=== PATIENT | male | born 1990 | race Caucasian/White ===

== ENCOUNTER 2022-05-15 20:22 | Emergency (ER) | payer MEDICAID ==
[~2022-05-15] VITALS: Ht 182.9 cm; Wt 85.1 kg
[~2022-05-15 20:22] MED LIST: CLIN-97 PO; DIVA-76 PO; HYDR50CA PO; LURA80TA2
[2022-05-15 21:11] VITALS: BP 141/81
== END 2022-05-16 01:38 | disposition home or self-care (01) ==
LOC: ER 20:24
DX: F41.9 Anxiety disorder, unspecified (principal); Z59.00 Homelessness unspecified
CPT/HCPCS: 99283

== ENCOUNTER 2022-05-16 03:41 | Emergency (ER) | payer MEDICAID ==
[~2022-05-16] VITALS: Ht 182.9 cm; Wt 86.1 kg
[2022-05-16 05:49] LABS: URINE AMPHETAMINE SCREEN NEGATIVE (Neg); URINE BARBITUATE SCREEN NEGATIVE (Neg); URINE BENZODIAZEPINES SCREEN NEGATIVE (Neg); URINE CANNABINOID SCREEN POSITIVE (Neg); URINE COCAINE SCREEN NEGATIVE (Neg); URINE METHADONE SCREEN NEGATIVE (Neg); URINE OPIATE SCREEN NEGATIVE (Neg); URINE PHENCYCLIDINE SCREEN NEGATIVE (Neg)
[2022-05-16 06:42] LABS: EOSINOPHILS # (AUTO) 0.3 X10'3 (0-0.9); HEMOGLOBIN 14.9 g/dl (14.0-17.9); LYMPHOCYTES # (AUTO) 1.6 X10'3 (1.1-4.8); MONOCYTES # (AUTO) 0.5 X10'3 (0-0.9)
[2022-05-16 06:43] LABS: BASOPHILS % (AUTO) 0.9 % (0-1); EOSINOPHILS % (AUTO) 6.3 % (0-6); HEMATOCRIT 42.6 % (42.0-52.0); LYMPHOCYTES % (AUTO) 37.3 % (21-51); MEAN CORPUSCULAR HEMOGLOBIN 31.6 PG (27.0-31.0); MEAN CORPUSCULAR VOLUME 90.3 FL (78-98); MEAN PLATELET VOLUME 9.9 FL (7.4-10.4); MONOCYTES % (AUTO) 11.8 % (2-12); NEUTROPHILS # (AUTO) 1.9 X10'3 (1.8-7.7); NEUTROPHILS % (AUTO) 43.7 % (42-75); PLATELET COUNT 241 X10'3 (140-440); RED BLOOD COUNT 4.71 X10'6 (4.70-6.10); RED CELL DISTRIBUTION WIDTH 13.5 % (11.5-14.5); WHITE BLOOD COUNT 4.4 X10'3 (4.5-11.0)
[2022-05-16 07:11] LABS: ALANINE AMINOTRANSFERASE 13 U/L (12-78); ALBUMIN 3.5 G/DL (3.4-5.0); ALBUMIN/GLOBULIN RATIO 1.1 (1.1-1.5); ALKALINE PHOSPHATASE 51 IU/L (46-116); ANION GAP 10 (8-16); ASPARTATE AMINO TRANSFERASE 19 U/L (10-37); BILIRUBIN,TOTAL 1.3 MG/DL (0.1-1.0); BLOOD UREA NITROGEN 9 MG/DL (7-18); BUN/CREATININE RATIO 15.3 (5.4-32.0); CALCIUM 8.8 MG/DL (8.5-10.1); CHLORIDE 105 MMOL/L (99-107); CREATININE 0.59 MG/DL (0.60-1.10); GLUCOSE 84 MG/DL (70-104); SODIUM 140 MMOL/L (135-145); TOTAL CARBON DIOXIDE 24.7 MMOL/L (24-32); TOTAL PROTEIN 6.8 G/DL (6.4-8.2); eGFR > 90 ML/MIN
[2022-05-16 07:14] LABS: LARGE PLATELETS FEW; PLATELET ESTIMATE NORMAL
[2022-05-16 07:22] LABS: VALPROATE < 3.0 UG/ML (50-100)
[2022-05-16 07:25] LABS: ACETAMINOPHEN < 2.0 UG/ML (10-30); ETHANOL < 0.010 GM/DL (0.0-0.010)
[2022-05-16 08:44] VITALS: BP 120/50
[2022-05-16] MEDS ORDERED: POTASSIUM BICARB 20meq eff tab 20 MEQ TABLET.EFF PO ONE (09:05)
--- NOTE | 2022-05-16 09:08 | NUR ---
William sent pt packet to [facility], awaiting pt UA.
[2022-05-16 09:19] LABS: CLARITY,URINE CLEAR (Clear); COLOR,URINE YELLOW (Yellow); GLUCOSE, URINE NEGATIVE (Neg); KETONES,URINE TRACE mg/dl (Neg); LEUKOCYTE ESTERASE ,URINE NEGATIVE (Neg); OCCULT BLOOD,URINE NEGATIVE (Neg); PROTEIN,URINE NEGATIVE (Neg); UROBILINOGEN,URINE 0.2 E.U/dL (0.2-1.0)
[2022-05-16 09:26] LABS: NITRITES, URINE NEGATIVE (Neg); UA COLLECTION TYPE VOIDED
--- NOTE | 2022-05-16 12:35 | NUR ---
Upon assessments, pt is comfortable without complaints. Provided with a safe tray for lunch. Room safety check done.
--- NOTE | 2022-05-16 12:35 | NUR ---
Inspection of backpack performed. Marijuana found and disposed of per protocol with security present. Pt notified and is understanding of hospital policy.
--- NOTE | 2022-05-16 13:26 | NUR ---
spoke with micaela from [employer]ion control ,answered all the question related to lab workup ,informed that 4 hr ekg was not repeated ,but pt is not drowsy ,AOX 4 .vitals stable ,sinus bradycardiac on monitor.as per micaela she will call the show card writer back to see if they need any more test .
== END 2022-05-16 13:52 | disposition still patient (30) ==
LOC: ER 03:41
DX: T46.5X2A Poisoning by other antihypertensive drugs, intentional self-harm, initial encounter (principal); Z20.822 Contact with and (suspected) exposure to COVID-19; F41.9 Anxiety disorder, unspecified; F32.A Depression, unspecified; F20.9 Schizophrenia, unspecified; Z59.00 Homelessness unspecified; Z79.2 Long term (current) use of antibiotics; Z79.899 Other long term (current) drug therapy; Y92.89 Other specified places as the place of occurrence of the external cause
CPT/HCPCS: 36415; 80053; 80164; 80305; 80320; 80329; 81003; 85008; 85025; 87811; 93005; 99284

== ENCOUNTER 2022-07-21 20:59 | Emergency (ER) | payer MEDICAID ==
[~2022-07-21] VITALS: Ht 182.9 cm; Wt 100.0 kg
[2022-07-22 01:35] VITALS: BP 145/78
== END 2022-07-22 01:37 | disposition home or self-care (01) ==
LOC: ER 20:59
DX: S52.122A Displaced fracture of head of left radius, initial encounter for closed fracture (principal); F41.9 Anxiety disorder, unspecified; Z59.00 Homelessness unspecified; Z79.2 Long term (current) use of antibiotics; Z79.899 Other long term (current) drug therapy; V19.9XXA Pedal cyclist (driver) (passenger) injured in unspecified traffic accident, initial encounter; Y93.89 Activity, other specified; Y92.89 Other specified places as the place of occurrence of the external cause; Y99.8 Other external cause status
CPT/HCPCS: 29105; 73080; 73110; 99284; A4565; A6449

== ENCOUNTER 2023-06-26 09:47 | Emergency (ER) | payer MEDICAID ==
[~2023-06-26] VITALS: Ht 182.9 cm; Wt 81.6 kg
[2023-06-26 09:57] VITALS: BP 153/78; PULSE 104; RESP 16; TEMP 98.7; O2SAT 99
== END 2023-06-26 10:59 | disposition home or self-care (01) ==
LOC: ER 09:48
DX: Z11.52 Encounter for screening for COVID-19 (principal); Z20.822 Contact with and (suspected) exposure to COVID-19; F41.9 Anxiety disorder, unspecified; F32.A Depression, unspecified; Z59.00 Homelessness unspecified; Z79.2 Long term (current) use of antibiotics; Z79.899 Other long term (current) drug therapy
CPT/HCPCS: 36415; 87811; 99283

== ENCOUNTER 2024-03-06 15:16 | Emergency (ER) | payer MEDICAID ==
[~2024-03-06] VITALS: Ht 182.9 cm; Wt 84.8 kg
[2024-03-06 16:17] VITALS: BP 130/74; PULSE 70; RESP 16; TEMP 98.5; O2SAT 98
== END 2024-03-06 16:20 | disposition home or self-care (01) ==
LOC: ER 15:17
DX: S62.346A Nondisplaced fracture of base of fifth metacarpal bone, right hand, initial encounter for closed fracture (principal); F41.9 Anxiety disorder, unspecified; F32.A Depression, unspecified; F20.9 Schizophrenia, unspecified; Z79.2 Long term (current) use of antibiotics; Z79.899 Other long term (current) drug therapy; X58.XXXA Exposure to other specified factors, initial encounter; Y93.89 Activity, other specified; Y92.89 Other specified places as the place of occurrence of the external cause; Y99.8 Other external cause status
CPT/HCPCS: 29125; 73130; 99283

== ENCOUNTER 2025-02-17 14:30 | Emergency (ER) | payer SELFPAY ==
[~2025-02-17] VITALS: Ht 182.9 cm; Wt 79.1 kg
[~2025-02-17 14:30] MED LIST changes: +CLIN-224 PO; -CLIN-97 PO; +DIVA-134 PO; -DIVA-76 PO
[2025-02-17 14:47] VITALS: BP 165/104; PULSE 102; RESP 16; TEMP 98.4; O2SAT 99
--- NOTE | 2025-02-17 14:50 | Physician Documentation ---
History of Present Illness ~ General Stated Complaint: ABD PAIN Time Seen by MD: 17:22 Primary Medical Doctor: no pmd History of Present Illness Initial Comments Presents to the ER with symptoms of illness since August of fatigue, headaches, nausea, and weakness. Worse recently. No fevers or chills, CP or dyspnea. "I just don't feel well." Medication Reconciliation Allergies: Coded Allergies: No Known Allergies (Unverified , 03/06/24) Scheduled Clindamycin HCL* (Clindamycin HCL*), 1 CAP PO Q6H Divalproex Sodium DR* (Depakote DR*), 1 TAB PO TID, (Reported) Hydroxyzine Pamoate (Vistaril), 1 CAP PO Q6H, (Reported) Lurasidone HCl (Latuda), HS, (Reported) Scheduled PRN ONDANSETRON ODT 4mg tablet (Ondansetron Odt), 1 TAB PO Q6H PRN PRN for nausea/vomiting Past Medical History Past Medical History: Anxiety, Depression, Schizophrenia Past Surgical History: no surgical history Alcohol Use: None Lives In: Homeless Review of Systems ROS As stated above in the HPI, otherwise all systems are reviewed and negative. Physical Exam Physical Exam Physical Exam General: Alert, no apparent distress. Neck: Full range of motion. Respiratory: Lungs clear, no respiratory distress. Chest: No accessory muscle use. Cardiovascular: Regular rate and rhythm, no murmurs. Gastrointestinal: Soft, nontender, nondistended. Bowels sounds present. Extremities: Normal range of motion, no deformity. Neurologic: Oriented x4. Psychiatric: Normal mood and affect. Skin: Normal color, warm and dry. No edema, no ecchymosis. Progress Results/Orders Results/Orders Completed Orders - JENNA ASHRAF NP Cbc/Diff (02/17/25 14:50) CMP (02/17/25 14:50) Vital Signs 02/17/25 14:47 Temp 98.4 Pulse 102 Resp 16 B/P (MAP) 165/104 Pulse Ox 99 Laboratory Tests Test 02/17/25 15:05 White Blood Count 5.4 Red Blood Count 5.22 Hemoglobin 15.9 Hematocrit 46.8 Mean Corpuscular Volume 89.6 Mean Corpuscular Hemoglobin 30.5 Mean Corpuscular Hemoglobin Concent 34.0 Red Cell Distribution Width 13.6 Platelet Count 268 Mean Platelet Volume 10.2 Neutrophils (%) (Auto) 62.5 Lymphocytes (%) (Auto) 23.9 Monocytes (%) (Auto) 10.3 Eosinophils (%) (Auto) 2.2 Basophils (%) (Auto) 1.1 H Neutrophils # (Auto) 3.4 Lymphocytes # (Auto) 1.3 Monocytes # (Auto) 0.6 Eosinophils # (Auto) 0.1 Basophils # (Auto) 0.1 CBC Comment Sodium Level 144 Potassium Level 3.8 Chloride Level 108 H Carbon Dioxide Level 27.6 Anion Gap 8 Blood Urea Nitrogen 8 Creatinine 0.72 Estimated GFR/1.73 m2 > 90 BUN/Creatinine Ratio 11.1 Glucose Level 84 Calcium Level 9.0 Total Bilirubin 0.8 Aspartate Amino Transf (AST/SGOT) 20 Alanine Aminotransferase (ALT/SGPT) 18 Alkaline Phosphatase 61 Total Protein 7.9 Albumin 4.0 Globulin 3.9 Albumin/Globulin Ratio 1.0 L Chemistry Comments Medical Decision Making Differential Diagnosis Vague symptoms. Labs normal. Is to f/u with PCP. Sent with ondansetron. Should return if worse. Departure Time of Disposition: 17:22 Impression: Primary Impression: General medical exam Additional Impression: Nausea Condition: Stable Discharge Instructions: General Discharge Instructions, Nausea, Adult Additional Instructions: While it is unclear what is causing your symptoms, the good news is that your labs are ALL normal. You were sent nausea medication for as needed use. Please followup with your primary care provider. Return if worse while awaiting primary care followup. Referrals: NO PRIMARY CARE PROVIDER (PCP) Prescriptions ONDANSETRON ODT 4mg tablet (ONDANSETRON ODT) 4 Mg Tab.rapdis 1 TAB PO Q6H PRN PRN for nausea/vomiting for 4 Days, #16 TAB 0 Refills Prov: JENNA ASHRAF NP 02/17/25 Education Educated: Patient Educated regarding: diagnosis, treatment, prognosis, need for follow up Signature Scribe Signature: x Attestation: The note accurately reflects work and decisions made by me.Jenna Ashraf - JASON 02/17/25 17:38 JENNA ASHRAF NP Feb 17, 2025 14:50
[2025-02-17 15:28] LABS: MEAN PLATELET VOLUME 10.2 FL (7.4-10.4); RED CELL DISTRIBUTION WIDTH 13.6 % (11.5-14.5)
[2025-02-17 15:53] LABS: CREATININE 0.72 MG/DL (0.60-1.10); TOTAL CARBON DIOXIDE 27.6 MMOL/L (24-32); eCRCL 159 ML/MIN; eGFR > 90 ML/MIN
[2025-02-17] MEDS ORDERED: ONDA-243 PO (17:23)
== END 2025-02-17 17:36 | disposition home or self-care (01) ==
LOC: ER 14:30
DX: Z00.00 Encounter for general adult medical examination without abnormal findings (principal); R11.0 Nausea; R51.9 Headache, unspecified; R53.1 Weakness; F20.9 Schizophrenia, unspecified
CPT/HCPCS: 36415; 80053; 85025; 99283